=== PATIENT | female | born 1955 | race Caucasian/White ===

== ENCOUNTER → 2016-05-08 | Outpatient (CLI) | payer OTHER ==
--- NOTE | 2016-05-10 13:14 | MM ---
Reason for exam: screening (asymptomatic). Last mammogram was performed 1 year and 2 months ago. History: Patient is postmenopausal. Family history of breast cancer in cousin at age 40. Took estrogen for 19 years. Physical Findings: A clinical breast exam by your physician is recommended on an annual basis and results should be correlated with mammographic findings. MG Screening Mammo w CAD Bilateral CC and MLO view(s) were taken. Prior study comparison: March 19, 2015, bilateral MG screening mammo w CAD. February 12, 2014, bilateral MG screening mammo w CAD. There are scattered fibroglandular densities. No significant changes when compared with prior studies. ASSESSMENT: Benign, BI-RAD 2 RECOMMENDATION: Routine screening mammogram of both breasts in 1 year.
== END | disposition home or self-care (01) ==
LOC: RADMAMWWP 09:29
PROVIDERS: ATTEND Internal Medicine
DX: Z12.31 Encounter for screening mammogram for malignant neoplasm of breast (principal)

== ENCOUNTER → 2018-04-14 | Outpatient (CLI) | payer BC ==
--- NOTE | 2018-04-14 12:54 | XR ---
Left leg HISTORY: Pain 2 views of the left leg Bone mineralization is mildly reduced. Alignment and joint spaces are maintained. No fracture or disl ocation. Soft tissue calcifications are likely vascular, correlate for possible venous stasis. There may be mild soft tissue swelling. IMPRESSION: Soft tissue findings as described.
== END | disposition home or self-care (01) ==
LOC: RADXRYALE 11:09
PROVIDERS: ATTEND Internal Medicine
DX: M79.605 Pain in left leg (principal)

== ENCOUNTER → 2018-09-20 | Outpatient (CLI) | payer BC ==
--- NOTE | 2018-09-21 13:42 | MM ---
Reason for exam: screening (asymptomatic). Last mammogram was performed 2 years and 4 months ago. History: Patient is postmenopausal. Family history of breast cancer in cousin at age 40. Took estrogen for 19 years. Physical Findings: A clinical breast exam by your physician is recommended on an annual basis and results should be correlated with mammographic findings. MG 3D Screening Mammo W/Cad Bilateral CC, MLO, and XCCL view(s) were taken. Prior study comparison: May 08, 2016, bilateral MG screening mammo w CAD. March 19, 2015, bilateral MG screening mammo w CAD. The breast tissue is heterogeneously dense. This may lower the sensitivity of mammography. Benign appearing bilateral calcifications. No suspicious abnormality. No significant changes when compared with prior studies. ASSESSMENT: Benign, BI-RAD 2 RECOMMENDATION: Routine screening mammogram of both breasts in 1 year.
== END | disposition home or self-care (01) ==
LOC: RADMAMWWP 09:32
PROVIDERS: ATTEND Internal Medicine
DX: Z12.31 Encounter for screening mammogram for malignant neoplasm of breast (principal)
CPT/HCPCS: 77063; 77067

== ENCOUNTER → 2019-02-02 | Outpatient (CLI) | payer BC ==
--- NOTE | 2019-02-02 22:30 | MR ---
EXAMINATION TYPE: MR MRCP DATE OF EXAM: 02/02/2019 COMPARISON: Outside abdominal ultrasound December 26, 2018. HISTORY: Abnormal outside ultrasound Standard multiplanar, multisequence MRI departmental protocol Multiplanar, multisequence images of the abdomen were acquired. Thin and thick slice MRCP imaging per formed on MRI scanner. Imaging performed without IV contrast. FINDINGS: Liver/gallbladder/pancreas/biliary system: Liver is overall normal in size. No significant dropout se en to suggest significant fatty infiltration. There is slightly lobulated otherwise simple appearing thin-walled cyst or cystic lesion measuring 3.5 x 3.2 x 3.4 cm left hepatic lobe axial image 30 and c oronal image 12. There are few additional scattered simple appearing smaller thin-walled cysts throug hout the liver. Pancreas is normal in size without concerning solid or cystic mass. Gallbladder shows no intraluminal gallstones or wall thickening. Dedicated MRCP imaging shows pancreatic duct appear within normal limits. There is no abnormal or akosua picious extrahepatic biliary dilatation. There is no significant intrahepatic biliary dilatation with the exception of the cystic lesion left hepatic lobe that appears to may be contiguous with bile casey t seen best image 46 series 701. Other: Lung bases are clear. Spleen and both adrenal glands are normal in size. No concerning renal m ass or hydronephrosis. Some prominence of fecal filled right colon. Small to moderate size hiatal her jodie. No abdominal ascites. No greater than 1 cm abdominal adenopathy. IMPRESSION: 1. No worrisome extrahepatic biliary dilatation on MRCP imaging. 2. Scattered simple-appearing thin-walled cysts or cystic lesions throughout the liver, largest lesio n left hepatic lobe favor simple thin-walled cyst, there is suggestion of continuity with the biliary system on MRCP imaging raising concern for biliary cystadenoma. No suspicious wall thickening, septa l thickening, or soft tissue nodularity on noncontrast imaging.
== END | disposition home or self-care (01) ==
LOC: RADMRIMAIN 10:27
PROVIDERS: ATTEND Internal Medicine Hematology & Oncology
DX: K76.9 Liver disease, unspecified (principal)
CPT/HCPCS: 74181

== ENCOUNTER → 2019-12-20 | Outpatient (CLI) | payer MEDICAID ==
--- NOTE | 2019-12-24 09:08 | MM ---
Reason for exam: screening (asymptomatic). Last mammogram was performed 1 year and 3 months ago. History: Patient is postmenopausal. Family history of breast cancer in cousin at age 40. Took estrogen for 19 years. Physical Findings: A clinical breast exam by your physician is recommended on an annual basis and results should be correlated with mammographic findings. MG Screening Mammo w CAD Bilateral CC and MLO view(s) were taken. Prior study comparison: September 20, 2018, bilateral MG 3d screening mammo w/cad. May 08, 2016, bilateral MG screening mammo w CAD. The breast tissue is heterogeneously dense. This may lower the sensitivity of mammography. Inferior posterior dermal calcifications. Additional benign vascular calcifications. No significant changes when compared with prior studies. ASSESSMENT: Benign, BI-RAD 2 RECOMMENDATION: Routine screening mammogram of both breasts in 1 year.
== END | disposition home or self-care (01) ==
LOC: RADMAMWWP 13:59
PROVIDERS: ATTEND Internal Medicine
DX: Z12.31 Encounter for screening mammogram for malignant neoplasm of breast (principal)
CPT/HCPCS: 77067

== ENCOUNTER → 2020-01-10 | Outpatient (CLI) | payer MEDICAID | END | disposition home or self-care (01) | LOC: LABWHC1 16:04 | PROVIDERS: ATTEND Internal Medicine | DX: Z20.828 Contact with and (suspected) exposure to other viral communicable diseases (principal) | CPT/HCPCS: U0003; C9803 ==

== ENCOUNTER → 2020-05-27 | Outpatient (CLI) | payer MEDICARE, OTHER ==
--- NOTE | 2020-05-27 16:43 | XR ---
EXAMINATION TYPE: XR chest 2V DATE OF EXAM: 05/27/2020 COMPARISON: NONE HISTORY: Annual physical TECHNIQUE: Frontal and lateral views of the chest are obtained. FINDINGS: There is no focal air space opacity, pleural effusion, or pneumothorax seen. The cardiac silhouette size is within normal limits. Aorta is dense. The osseous structures are intact. IMPRESSION: No acute cardiopulmonary process.
== END | disposition home or self-care (01) ==
LOC: RADXRYALE 13:42
PROVIDERS: ATTEND Internal Medicine
DX: Z00.01 Encounter for general adult medical examination with abnormal findings (principal)
CPT/HCPCS: 71046

== ENCOUNTER → 2021-01-23 | Outpatient (CLI) | payer MEDICARE, OTHER ==
--- NOTE | 2021-01-23 09:10 | BD ---
EXAMINATION TYPE: Axial Bone Density DATE OF EXAM: 01/23/2021 COMPARISON: NONE CLINICAL HISTORY: Disorder of bone. Height: 62 IN Weight: 147 LBS FRAX RISK QUESTIONS: Secondary Osteoporosis: 3. Menopause before 45: TOTAL HYST AGE 32 RISK FACTORS HISTORY OF: Family History of Osteoporosis: YES MOTHER AND SISTER Active: YES Postmenopausal woman: TOTAL HYST AGE 32 Take estrogen and/or progesterone medications: NOT NOW How long: TOOK FOR 10 YEARS MEDICATIONS: Additional Medications: LOSARTAN, AMLODIPINE, CARVEDIOL, HCTZ, PLAQUENIL, XANAX, CYCLOBERZAPRINE, ATKINSON TOPRAZOLE, ROSUVASTATIN, ASPIRIN, LACTULOSE, LORATADINE, LINZESS EXAM MEASUREMENTS: Bone mineral densitometry was performed using the [employer]. Bone mineral density as measured about the Lumbar spine is: ----- L1-L4(G/cm2): 0.930 T Score Values are as follows: ----- L2: -2.7 ----- L3: -1.8 ----- L4: -1.6 ----- L1-L4: -2.1 Bone mineral density BASELINE Bone mineral density about the R hip (g/cm2): 0.738 Bone mineral density about the L hip (g/cm2): 0.722 T Score values are as follows: -----R Neck: -2.2 -----L Neck: -2.3 -----R Total: -2.4 -----L Total: -2.3 Bone mineral density BASELINE IMPRESSION: Osteopenia (T Score between -2.5 and -1). There is slightly increased risk of fracture and the patient may be considered for treatment. Re-Screen 2-5 years. NOTE: T-SCORE=SD OF THE YOUNG ADULT MEAN.
--- NOTE | 2021-01-26 09:07 | MM ---
Reason for exam: screening (asymptomatic). Last mammogram was performed 1 year and 1 month ago. History: Patient is postmenopausal. Family history of breast cancer in cousin at age 40. Took estrogen for 19 years. Physical Findings: A clinical breast exam by your physician is recommended on an annual basis and results should be correlated with mammographic findings. MG 3D Screening Mammo W/Cad Bilateral CC and MLO view(s) were taken. Prior study comparison: December 20, 2019, bilateral MG screening mammo w CAD. September 20, 2018, bilateral MG 3d screening mammo w/cad. There are scattered fibroglandular densities. There are benign appearing round, regiona, vascular calcifications bilaterally. There is no discrete abnormality. ASSESSMENT: Benign, BI-RAD 2 RECOMMENDATION: Routine screening mammogram of both breasts in 1 year.
== END | disposition home or self-care (01) ==
LOC: RADMAMWWP 07:55
PROVIDERS: ATTEND Internal Medicine
DX: Z12.31 Encounter for screening mammogram for malignant neoplasm of breast (principal); M85.89 Other specified disorders of bone density and structure, multiple sites; M81.0 Age-related osteoporosis without current pathological fracture; Z78.0 Asymptomatic menopausal state; Z80.3 Family history of malignant neoplasm of breast
CPT/HCPCS: 77063; 77067; 77080

== ENCOUNTER → 2022-02-22 | Outpatient (CLI) | payer MEDICARE, OTHER | END | disposition home or self-care (01) | LOC: RADBDWWP 08:11 | PROVIDERS: ATTEND Internal Medicine | DX: Z53.9 Procedure and treatment not carried out, unspecified reason (principal) ==

== ENCOUNTER → 2022-02-22 | Outpatient (CLI) | payer MEDICARE, OTHER ==
--- NOTE | 2022-02-23 08:33 | MM ---
Reason for Exam: Screening (asymptomatic). Last mammogram was performed 1 year(s) and 1 month(s) ago. Patient History: Menarche at age 12. First Full-Term at age 16. Left ovary removed at age 33. Right ovary removed at age 33. Hysterectomy at age 32. Postmenopausal. Estrogen, starting at age 39 for 19 years. Maternal cousin had breast cancer, age 40. Risk Values: Fabiana 5 year model risk: 1.2%. NCI Lifetime model risk: 4.4%. Prior Study Comparison: 09/20/2018 Bilateral Screening Mammogram, [facility]. 12/20/2019 Bilateral Screening Mammogram, [facility]. 01/23/2021 Bilateral Screening Mammogram, [facility]. Tissue Density: There are scattered fibroglandular densities. Findings: Analyzed By CAD. There is no suspicious group of microcalcifications or new suspicious mass in either breast. Benign-appearing round, regional, and vascular calcifications bilaterally. Overall Assessment: Benign, BI-RAD 2 Management: Screening Mammogram of both breasts in 1 year. A clinical breast exam by your physician is recommended on an annual basis and results should be correlated with mammographic findings. Electronically signed and approved by: Pantera Patterson D.O.
== END | disposition home or self-care (01) ==
LOC: RADMAMWWP 08:09
PROVIDERS: ATTEND Internal Medicine
DX: Z12.31 Encounter for screening mammogram for malignant neoplasm of breast (principal); Z78.0 Asymptomatic menopausal state; Z80.3 Family history of malignant neoplasm of breast
CPT/HCPCS: 77063; 77067

== ENCOUNTER 2022-04-22 12:15 | Day surgery (SDC) | payer MEDICARE, OTHER ==
[2022-04-15 16:00] VITALS: BMI 26.5
[~2022-04-22 12:15] MED LIST: SODIUM CHLORIDE 0.9% 1,000 ML IV SCH
[2022-04-22] MEDS ORDERED: SODIUM CHLORIDE 0.9% 500 ML 500 ML IV ONE (12:27)
[2022-04-22 12:36] VITALS: RESP 16; TEMP 97.5
[2022-04-22 14:40] VITALS: BP 147/71; PULSE 78
--- NOTE | 2022-04-26 15:01 | P.EPPROC ---
- EP Procedure Note Electrophysiology Procedure Note: Diagnosis Recurrent syncope Twelve-lead EKG shows sinus rhythm normal [place] narrow QRS normal ST segments Normal QT interval Possible old inferior wall CT Tilt table test per protocol Baseline blood pressure 145/82 mmHg, Baseline heart rate 76 bpm Patient was tilted upright at an angle of 70 per protocol No change in heart rate and blood pressure despite the fact that she was complaining of lightheadedness and headache She was laid supine at the end of the procedure Impression Normal heart rate and blood pressure response to upright tilting Q waves in the inferior leads on twelve-lead EKG
== END 2022-04-22 14:43 | disposition home or self-care (01) ==
LOC: CATHEP 12:15
PROVIDERS: ATTEND Internal Medicine Clinical Cardiac Electrophysiology
DX: R55 Syncope and collapse (principal)
CPT/HCPCS: 93660

== ENCOUNTER → 2023-02-15 | Outpatient (CLI) | payer MEDICARE, OTHER ==
--- NOTE | 2023-02-15 18:05 | MM ---
Reason for Exam: Screening (asymptomatic). Last screening mammogram was performed 12 month(s) ago. Patient History: Menarche at age 12. First Full-Term at age 16. Left ovary removed at age 33. Right ovary removed at age 33. Hysterectomy at age 32. Postmenopausal. Estrogen, starting at age 39 for 19 years. Maternal cousin had breast cancer, age 40. Risk Values: Fabiana 5 year model risk: 1.2%. NCI Lifetime model risk: 4.2%. Prior Study Comparison: 12/20/2019 Bilateral Screening Mammogram, [facility]. 01/23/2021 Bilateral Screening Mammogram, [facility]. 02/22/2022 Bilateral MG 3D screening mammo w/cad, [facility]. Tissue Density: There are scattered fibroglandular densities. Findings: Analyzed By CAD. Benign dermal and vascular calcifications are present. Loop recorder device along the medial aspect of the left breast. There is no suspicious group of microcalcifications or new suspicious mass in either breast. Overall Assessment: Benign, BI-RAD 2 Management: Screening Mammogram of both breasts in 1 year. . Patient should continue monthly self-breast exams. A clinical breast exam by your physician is recommended on an annual basis. This exam should not preclude additional follow-up of suspicious palpable abnormalities. Note on Fabiana scores and lifetime risk: 1. A Fabiana score greater than 3% is considered moderate risk. If this is the case, consider specialist referral to assess eligibility for a risk reducing agent. 2. If overall lifetime risk for the development of breast cancer is 20% or higher, the patient may qualify for future screening with alternating mammogram and breast MRI. Electronically signed and approved by: Jenaro Atkins M.D. Radiologist
--- NOTE | 2023-02-16 20:20 | BD ---
EXAMINATION TYPE: Axial Bone Density DATE OF EXAM: 02/15/2023 CLINICAL HISTORY: 67 years old Female. ICD-10 CODE: N95.8 OTHER SPECIFIED MENOPAUSAL Height: 62 Weight: 147 FRAX RISK QUESTIONS: Family History (Parent hip fracture): yes Secondary Osteoporosis: yes 3. Menopause before 45: yes, 32 RISK FACTORS HISTORY OF: Family History of Osteoporosis: yes, mother Postmenopausal woman: at 32 Take estrogen and/or progesterone medications: past, x10 yrs Hyperparathyroidism: no Adrenal Insufficiency: no MEDICATIONS: Osteoporosis Medications: yes, for yrs, Additional Medications: bp meds,xanax, statins, linzess, aspirin, osterporosis meds, reflux meds, Additional History: ibs, hypertension, cholesterol, anxiety, EXAM MEASUREMENTS: Bone mineral densitometry was performed using the [employer]. Bone mineral density as measured about the Lumbar spine is: ----- L1-L4(G/cm2): 0.913 T Score Values are as follows: ----- L1: -2.9 ----- L2: -3.0 ----- L3: -1.8 ----- L4: -1.7 ----- L1-L4: -2.2 Z Score Values are as follows: ----- L1: -1.3 ----- L2: -1.4 ----- L3: -0.2 ----- L4: -0.1 ----- L1-L4: -0.7 Bone mineral density has: Decreased -1.8% since study of: 01.23.2021 Bone mineral density about the R hip (g/cm2): 0.669 Bone mineral density about the L hip (g/cm2): 0.727 T Score values are as follows: -----R Neck: -2.5 -----L Neck: -2.5 -----R Total: -2.7 -----L Total: -2.2 Z Score values are as follows: -----R Neck: -1.0 -----L Neck: -0.9 -----R Total: -1.4 -----L Total: -1.0 Bone mineral density has: Decreased -2.4% since study of: 01.23.2021 FRAX%s: The graph provided illustrates a 23.7% chance for a major osteoporotic fx and a 5.2% chance f or the hips probability for fx in 10 years time. IMPRESSION: Osteoporosis (T Score less than -2.5). There is increased fracture risk and therapy is usually indicated based on age. Re-Screen 1-2 years. NOTE: T-SCORE=SD OF THE YOUNG ADULT MEAN.
== END | disposition home or self-care (01) ==
LOC: RADMAMWWP 06:56
PROVIDERS: ATTEND Internal Medicine
DX: Z12.31 Encounter for screening mammogram for malignant neoplasm of breast (principal); M81.0 Age-related osteoporosis without current pathological fracture; Z78.0 Asymptomatic menopausal state; Z80.3 Family history of malignant neoplasm of breast
CPT/HCPCS: 77063; 77067; 77080

== ENCOUNTER → 2023-11-01 | Outpatient (CLI) | payer MEDICARE, OTHER ==
--- NOTE | 2023-11-02 00:29 | US ---
EXAMINATION TYPE: US kidneys/renal and bladder DATE OF EXAM: 11/01/2023 COMPARISON: NONE CLINICAL INDICATION: Female, 68 years old with history of N39.9 UTI; Frequent UTI's EXAM MEASUREMENTS: Right Kidney: 9.3 x 4.6 x 5.2 cm Left Kidney: 9.7 x 4.6 x 4.4 cm Right Kidney: No hydronephrosis or masses seen Left Kidney: No hydronephrosis or masses seen Bladder: wnl Bilateral Jets seen: Yes There is no evidence for hydronephrosis at this point in time. No nephrolithiasis is seen. No nury s are identified. The urinary bladder is anechoic. Bilateral ureteral jets are seen. IMPRESSION: Unremarkable renal ultrasound [facility] Wyatt Gonzalez, , 11/02/2023 12:27 AM
== END | disposition home or self-care (01) ==
LOC: RADUSWWP 13:02
PROVIDERS: ATTEND Urology
DX: N39.9 Disorder of urinary system, unspecified (principal)
CPT/HCPCS: 76770

== ENCOUNTER → 2024-02-17 | Outpatient (CLI) | payer MEDICARE, OTHER ==
--- NOTE | 2024-02-20 09:18 | MM ---
Reason for Exam: Screening (asymptomatic). Last screening mammogram was performed 12 month(s) ago. Patient History: Menarche at age 12. First Full-Term at age 16. Left ovary removed at age 33. Right ovary removed at age 33. Hysterectomy at age 32. Postmenopausal. Estrogen, starting at age 39 for 19 years. Maternal cousin had breast cancer, age 40. Risk Values: Fabiana 5 year model risk: 1.2%. NCI Lifetime model risk: 4.0%. Prior Study Comparison: 01/23/2021 Bilateral Screening Mammogram, [facility]. 02/22/2022 Bilateral MG 3D screening mammo w/cad, [facility]. 02/15/2023 Bilateral MG 3D screening mammo w/cad, [facility]. Tissue Density: There are scattered areas of fibroglandular density. Analyzed By CAD. Overall Assessment: Benign, BI-RAD 2 Management: Screening Mammogram of both breasts in 1 year. Electronically signed and approved by: Chip Francois M.D.
== END | disposition home or self-care (01) ==
LOC: RADMAMWWP 15:32
PROVIDERS: ATTEND Internal Medicine
DX: Z12.31 Encounter for screening mammogram for malignant neoplasm of breast (principal); R92.323 Mammographic fibroglandular density, bilateral breasts; Z78.0 Asymptomatic menopausal state; Z80.3 Family history of malignant neoplasm of breast
CPT/HCPCS: 77063; 77067